=== PATIENT | male | born 1990 | race Caucasian/White ===

== ENCOUNTER 2016-07-20 17:37 | Observation (INO) | payer BC ==
--- NOTE | ~2016-07-20 | HP ---
History And Physical [place] [id number] [facility] [place]. [address] NAME: PEGGY MURRELL : [birth year] STATUS : ADM IN [facility]#: [id number] AGE: 26 ADM/REG DATE : 07/20/16 MR#: [id number] REPORT SERV DATE: 07/20/16 DICTATED BY: ARIEL DILLARD DATE: 07/20/16 REPORT STATUS : Draft TRANSCRIBED BY: MODL DATE: 07/20/16 DATE OF ADMISSION: 07/20/2016 RESIDENT: Nikita Collins M.D. CHIEF COMPLAINT: Abdominal pain. HISTORY OF PRESENT ILLNESS: This is a 26-year-old male with a history of diabetes type 1, who presents with acute onset of right lower quadrant pain beginning this morning. The pain has always been localized to the right lower quadrant. This has initially doubles him over with pain, although this has gradually subsided. He has had mild nausea associated with no emesis, no change to bowel or bladder habit. He had been able to tolerate p.o. Denies any known fevers or chills but did have some diaphoresis. He says he has never had anything like this happen before. Of note, in the past three months, his glucose control has been poor ranging in the 200 to 300s. PAST MEDICAL HISTORY: Diabetes type 1. SURGICAL HISTORY: None. FAMILY HISTORY: None. SOCIAL HISTORY: Denies any alcohol, tobacco, or illicit drug use. ALLERGIES: NONE. HOME MEDICATIONS: Insulin. REVIEW OF SYSTEMS: Pertinent positives and negatives as above per the HPI. Denies any chest pain, shortness of breath, headache, vision changes, or other notable complaints. PHYSICAL EXAMINATION: VITAL SIGNS: Temperature 98.5, blood pressure 121/77, heart rate 81, respirations 18, oxygen saturation 100% on room air. GENERAL: This is an adult white male, in no acute distress. He is alert and oriented x3. CARDIOVASCULAR: Regular rate and rhythm. PULMONARY: Clear to auscultation bilaterally. ABDOMEN: Soft, nondistended, and focally tender to palpation in the right lower quadrant at McBurney's point. There is no rebound. There is some voluntary guarding. There is no diffuse peritonitis. EXTREMITIES: The patient moves all extremities with equal strength and range of motion. NEUROLOGIC: Cranial nerves 2 through 12 are grossly intact. IMAGING: CT scan of the abdomen and pelvis from outside facility; he has an enlarged appendix with some stranding consistent with acute appendicitis. History And Physical [address] [place]. [address] NAME: PEGGY MURRELL : [birth year] STATUS : ADM IN PAT#: [id number] AGE: 26 ADM/REG DATE : 07/20/16 MR#: [id number] REPORT SERV DATE: 07/20/16 DICTATED BY: ARIEL DILLARD DATE: 07/20/16 REPORT STATUS : Draft TRANSCRIBED BY: MODL DATE: 07/20/16 PERTINENT LABS: White count 13 with a left shift. Glucose was 180. ASSESSMENT AND PLAN: 1. This is a 26-year-old male with acute appendicitis. We will plan to go to the operating room for a laparoscopic, possible open appendectomy. Discussed with the patient and the patient's family the risks and benefits and details including alternatives of the procedure. All questions were answered. Of note, the patient received IV antibiotics; Rocephin and Flagyl at the outside hospital. We will re-dose as necessary. 2. Given his history of diabetes type 1, we will continue perioperative Accu-Cheks and glucose control. WC/CHANEL Ariel Dillard M.D. / [id number] CC: Ariel Dillard M.D.
--- NOTE | ~2016-07-20 | OP ---
Record Of Operation [facility] [address] [place]. [address] NAME: PEGGY MURRELL : [birth year] STATUS : ADM IN PAT#: [id number] AGE: 26 ADM/REG DATE : 07/20/16 MR#: [id number] REPORT SERV DATE: 07/20/16 DICTATED BY: ARIEL DILLARD DATE: 07/20/16 REPORT STATUS : Draft TRANSCRIBED BY: MODL DATE: 07/20/16 DATE OF PROCEDURE: 07/20/2016 ATTENDING SURGEON: Ariel Dillard M.D. RESIDENT SURGEON: Nikita Collins MD PREOPERATIVE DIAGNOSIS: Acute appendicitis. POSTOPERATIVE DIAGNOSIS: Acute appendicitis. ANESTHESIA: General endotracheal and local. INDICATIONS: The patient is a 26-year-old male, who presented to an outside hospital with 24 hours of acute right lower quadrant abdominal pain. Workup including history, labs, and imaging were consistent with acute appendicitis. Therefore, after discussion with the patient, and the patient's family, it was decided to proceed with a laparoscopic possible open appendectomy. DESCRIPTION OF OPERATION: After informed consent had been obtained, the patient had been properly identified, he was brought back to the operative suite, placed in the supine position. After adequate general endotracheal anesthesia had been achieved. The patient's abdomen was prepped and draped in usual sterile fashion. Brief time-out was then performed where the patient was again identified, and the procedure was noted, preoperative antibiotics and allergies noted. Local anesthetic was infused at the umbilicus. Skin hooks were used to elevate the lateral skin edges of the umbilicus. A scalpel used to make a vertical incision through the midline of the umbilicus. Arianna clamp was then used to bluntly dissect through the subcutaneous tissues and through the peritoneum below the umbilicus. A 12-mm trocar was then placed through this incision and the abdomen was insufflated with CO2. After adequate insufflation, a 5 mm laparoscope was placed through this trocar and intraabdominal contents were observed. There were no injuries or complications noted from initial entry. There were no obvious deformities or injuries in all four quadrants of the abdomen. Next, two 5 mm trocars were placed under direct visualization. One in the right mid abdomen and one in the left lower quadrant. The patient was then positioned in the Trendelenburg position. Laparoscopic graspers were then used to sweep the small bowel away from the right lower quadrant. There was a clearly visible dilated and inflamed appendix at the base of the cecum. The appendix was grasped near its tip and brought in the operative field. It did not appear to have any gross perforation. [place] dissectors were used to bluntly make a window at the appendiceal mesentery at its base. A laparoscopic stapler with a tissue load was then used to transect the appendix at its base of the cecum. Good hemostasis and no spillage of stool were observed. Next, laparoscopic stapler was used to transect the mesentery of the appendix with a vascular load. There were some small areas of ooze at the staple line that were controlled with cautery, with the [place] graspers. The appendix was then placed in a laparoscopic retrieval bag and removed through the umbilical port intact and passed off as specimen. The umbilical trocar was then replaced and the abdomen and the Record Of Operation [address] [place]. [address] NAME: TRISTAJadePEGGY LEONEL : [birth year] STATUS : ADM IN [facility]#: [id number] AGE: 26 ADM/REG DATE : 07/20/16 MR#: [id number] REPORT SERV DATE: 07/20/16 DICTATED BY: ARIEL DILLARD DATE: 07/20/16 REPORT STATUS : Draft TRANSCRIBED BY: CHANEL DATE: 07/20/16 dissection field was then reobserved. Any clot was suctioned and irrigated away. Again both the mesenteric and the cecal staple line were observed. There was good hemostasis and closure of both sites. The two 5 mm trocars were then removed under direct visualization with good hemostasis. The remaining umbilical trocar was then removed and excess CO2 was evacuated from the abdomen. The fascia at the umbilical site was then reapproximated with 0 Vicryl suture. The skin at each incision site was then reapproximated with interrupted Monocryl suture. All incisions were cleaned and dried. Dressings of Steri-Strips, and Band Aid were applied. The patient was then awoken without difficulty from the procedure and taken to the recovery room in stable condition. COMPLICATIONS: None. ESTIMATED BLOOD LOSS: Less than 25 mL. FLUIDS: 800 mL of crystalloid. DRAINS: None. SPECIMENS: Appendix. LARON/CHANEL Ariel Dillard M.D. / [id number] CC: Ariel Dillard M.D.
[~2016-07-20 17:37] MED LIST: INSNOVR SC; LEVEMFLXPN SC; NOVOLOG SC
[2016-07-21] MEDS ORDERED: NORCO1 TA1 PO (10:34)
== END 2016-07-21 11:07 | disposition home or self-care (01) ==
LOC: CDU1 17:37 → SDC/OF 18:50 → PACU 21:23 → 5SO 22:29
PROVIDERS: Specialist
PROC: 0DTJ4ZZ Resection of Appendix, Percutaneous Endoscopic Approach (ICD-10-PCS; principal; 2016-07-20 19:15)
DX: K35.80 Unspecified acute appendicitis (principal); E11.9 Type 2 diabetes mellitus without complications; R10.31 Right lower quadrant pain; R10.9 Unspecified abdominal pain; Z91.02 Food additives allergy status; Z79.4 Long term (current) use of insulin
CPT/HCPCS: 82962; 88304; G0378; J0330; J1170; J1885; J2250; J2405; J2710; J3010